=== PATIENT | female | born 1980 | race Caucasian/White ===

== ENCOUNTER → 2023-01-19 19:18 | Outpatient (CLI) | payer OTHER, SELFPAY ==
[2023-01-19 20:46] LABS: Influenza A - CEPHEID Flu A NEGATIVE (NEGATIVE); Influenza B - CEPHEID Flu B NEGATIVE (NEGATIVE); Respiratory Syncytial Virus Negative (Negative)
[2023-01-19 20:58] LABS: COVID-19 CEPHEID 4-PLEX PCR Negative (Negative)
== END ==
PROVIDERS: Visit Provider Physician Assistant
DX: R11.0 Nausea (principal); R11.10 Vomiting, unspecified; R19.7 Diarrhea, unspecified
CPT/HCPCS: 0241U

== ENCOUNTER → 2024-03-09 16:54 | Outpatient (CLI) | payer SELFPAY ==
--- NOTE | 2024-03-09 | DI.MRI.S_ITS ---
PROCEDURE: MR FOOT RT WO CON INDICATIONS: Right foot pain TECHNIQUE: Multiphasic, multisequence MRI of the forefoot was performed, without intravenous contrast administration. COMPARISON: [facility] Page, CR, XR FOOT 3+ VIEWS RIGHT, 10/28/2023, 15:50. FINDINGS: Image quality: Excellent. Bones and joints: No bone marrow contusions or metatarsal stress fractures. Degenerative changes are seen at the naviculocuneiform articulations with subchondral cystic changes and subchondral edema. Mild degenerative edema at the superomedial cuboid. Mild degenerative changes at the 2nd tarsometatarsal joint. Moderate to severe degenerative changes are seen in the 1st metatarsophalangeal joint with full-thickness cartilage loss, subchondral edema, marginal osteophyte formation. Moderate 1st metatarsophalangeal effusion. The sesamoid bones appear in expected positions, without internal edema. No intraosseous lesions. Soft tissues: The visualized plantar foot muscles demonstrate normal signal and bulk. Visualized flexor and extensor tendons appear intact, without tenosynovitis. The distal insertions of the peroneus brevis and longus tendons appear intact. The principal Lisfranc ligament appears intact. No soft tissue ganglion cysts or bursal fluid collections. Sagittal images demonstrate no evidence for plantar plate tears. IMPRESSION: 1. 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 2. [id number] degenerative changes in the midfoot with areas of subchondral edema. 3. No acute ligament or tendon injury is seen. Approved by: Rogerio Trevino M.D. on 03/10/2024 at 10:26
== END ==
PROVIDERS: Referring Provider Podiatrist; Visit Provider Podiatrist
DX: M19.071 Primary osteoarthritis, right ankle and foot (principal); M79.671 Pain in right foot; M25.474 Effusion, right foot
CPT/HCPCS: 73718